=== PATIENT | female | born 1975 | race Caucasian/White ===

== ENCOUNTER 2021-11-03 12:48 | Emergency (ER) | payer MEDICAID, SELFPAY ==
[2021-11-03 12:54] VITALS: BP 128/90; PULSE 105; RESP 16; TEMP 36.8; O2SAT 98; BMI 32.4
[2021-11-03 13:38] LABS: Basophils Percent Auto 0.3 % (0.0-3.0); Hematocrit 43.2 % (33.0-51.0); Hemoglobin* 14.7 gm/dL (12.0-16.0); Immature Granulocytes Abs Auto 0.04 K/uL (0.00-0.30); Lymphocytes Percent Auto 13.3 % (20-44); Mean Corpuscular HGB Conc 34 gm/dL (32-36); Mean Corpuscular Hemoglobin 31 pg (26-34); Mean Corpuscular Volume 90 fL (80-100); Monocytes Percent Auto 5.3 % (0.0-11.0); Neutrophils Percent Auto 79.8 % (42.0-72.0); Platelet Count* 275 K/uL (140-440); RDW Coefficient of Variation % 12.3 % (11.5-15.5); Red Blood Count 4.79 m/uL (4.00-5.20); White Blood Count* 15.75 K/uL (4.50-11.00)
[2021-11-03 13:41] LABS: Slide Review Reflex No
--- NOTE | 2021-11-03 13:41 | ED_ITS ---
HPI - General Adult General Chief complaint: Unspecified Complaint, Adult Stated complaint: Fatigue, nausea, achey, fever Time Seen by Provider: 11/03/21 12:54 Source: patient History of Present Illness HPI narrative: Patient is a 46-year-old woman who presents for evaluation of some fatigue and body aches. She says that 2 days ago, she felt fatigued, to the point that she stayed home from work. She said that she only had the energy to watch TV all day. The next day, she also did go to work because she felt shaky and dizzy. She says that she attributed that to possibly an iron crash, because she has had problems with low iron and takes iron supplementation. Today, she says that she felt well enough to go to work, but then while at work she developed more fatigue and body aches, so she thought she should come get checked out. She has had a little bit of a cough, but says that is pretty typical for her because she is a smoker although she is trying to quit. She says while at work she thought she had a fever as well though she did check her temperature. She does feel like her temperature came down over the course of about 45 minutes. 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 She is not short of breath. She does not have a sore throat or congestion. She took a home COVID test yesterday which was negative. She has had some nausea but no vomiting. Diarrhea. Related Data Home Medications Medication Instructions Recorded Confirmed Aleve 11/03/21 fluticasone propionate 50 intranasal 11/03/21 mcg/actuation nasal spray,suspension norethindrone (contraceptive) 0.35 mg 11/03/21 mg tablet Allergies Allergy/AdvReac Type Severity Reaction Status Date / Time Penicillins Allergy Verified 11/03/21 13:00 shellfish Allergy Uncoded 11/03/21 13:00 Review of Systems Status of ROS: Reports: 10 or more systems reviewed and unremarkable except as noted in History and below [facility] Social History Smoking Status: Current every day smoker How often do you have a drink containing alcohol: 2-4 times a month AUDIT-C Alcohol total score: 2 Non-prescribed substance use: denies use Exam Narrative: Exam Narrative: Vital signs as noted above. In general, an alert, well-appearing patient. Head: Normocephalic, atraumatic. Eyes: Pupils are equal reactive. Extraocular movements are full. Conjunctivae are normal. ENT: Mucous membranes are moist. Throat is normal. Neck: Supple without lymphadenopathy. Heart: Regular rate and rhythm. No murmur or rub. Lungs: Clear bilaterally. No increased work of breathing, crackles or wheezes. Abdomen: Soft and nontender. No organomegaly. Extremities: Well perfused. No edema. No calf tenderness. Pulses intact. Neurologic: Patient is alert and oriented to person and place. Speech is fluent. Face is symmetric. Moves all extremities equally. Affect: Normal. Skin: Warm and dry. Well perfused. Const: Vital Signs, click to edit/add: Vital Signs - 24 hr 11/03/21 12:54 11/03/21 14:39 Temperature 98.3 F Pulse Rate [Left P ulse Oximeter] 105 H 86 Respiratory Rate 16 18 Blood Pressure [Ri ght Upper Arm] 128/90 H 131/97 H Pulse Oximetry 98 99 Oxygen Delivery Me thod Room Air Room Air Course Course Hospital Course: I had a fairly lengthy conversation with her about her symptoms. Overall, these are likely viral it I offered to do a chest x-ray which she declined. She says that she does not feel is necessary and she is worried about insurance coverage. She says the cough is not that bad, and she thinks the rib pain is just muscles. She would like to do some blood work as she is concerned about her anemia. She would also like to repeat a COVID test. Her exam is normal, she was mildly tachycardic on arrival at 1:05 a.m., but in the course of my exam her heart rate is normal. Her oxygen level is normal. Clinically she looks well. Discussed that she may have a nonspecific viral infection, in which case I would just recommend supportive care and she will likely feel better as her illness improves. White blood cells a mildly elevated at 15,000 thousand, significance somewhat unclear at this time. Hemoglobin is normal at 14.7 and platelets are 275,000. Basic metabolic panel is entirely normal and COVID, influenza and RSV are negative. Reviewed all this with her. I think it is reasonable to see how she does over the next couple of days. Discussed if she has symptoms that are more focal, if her cough significantly worsens or she develops focal chest pain or shortness of breath, or she develops new symptoms such as urinary symptoms, bloody stools, unusual rashes, etcetera recommend that she come back so that we can do more evaluation. Otherwise, supportive care, follow up with primary care if not improving over the next few days to week. Work note given. Vital Signs Vital signs: Initial Vital Signs Temperature 98.3 F 11/03/21 12:54 Temperature Source Temporal Artery Scan 11/03/21 12:54 Pulse Rate 105 H 11/03/21 12:54 Respiratory Rate 16 11/03/21 12:54 Blood Pressure 128/90 H 11/03/21 12:54 Blood Pressure Mean 102 11/03/21 12:54 Blood Pressure Position Sitting 11/03/21 12:54 Pulse Oximetry 98 11/03/21 12:54 Oxygen Delivery Method 11/03/21 12:54 Vital Signs Temperature 98.3 F 11/03/21 12:54 Pulse Rate 105 H 11/03/21 12:54 Respiratory Rate 16 11/03/21 12:54 Blood Pressure 128/90 H 11/03/21 12:54 Pulse Oximetry 98 11/03/21 12:54 Oxygen Delivery Method 11/03/21 12:54 Temperature 98.3 F 11/03/21 12:54 Pulse Rate 86 11/03/21 14:39 Respiratory Rate 18 11/03/21 14:39 Blood Pressure 131/97 H 11/03/21 14:39 Pulse Oximetry 99 11/03/21 14:39 Oxygen Delivery Method 11/03/21 14:39 Medical Decision Making Lab Data Labs: Lab Results 11/03/21 11/03/21 11/03/21 Range/Units 13:33 13:33 13:33 WBC 15.75 H (4.50-11.00) K/uL RBC 4.79 (4.00-5.20) m/uL Hgb 14.7 (12.0-16.0) gm/dL Hct 43.2 (33.0-51.0) % MCV 90 (80-100) fL MCH 31 (26-34) pg MCHC 34 (32-36) gm/dL RDW Coeff of Allen 12.3 (11.5-15.5) % Plt Count 275 (140-440) K/uL Neut % (Auto) 79.8 H (42.0-72.0) % Lymph % (Auto) 13.3 L (20-44) % Bradley % (Auto) 5.3 (0.0-11.0) % Eos % (Auto) 1.0 (0.0-7.0) % Baso % (Auto) 0.3 (0.0-3.0) % Neut # (Auto) 12.60 H (1.7-7.0) K/uL Lymph # (Auto) 2.10 (0.90-2.90) K/uL Bradley # (Auto) 0.80 (0.00-0.90) K/UL Eos # (Auto) 0.20 (0.00-0.50) K/uL Baso # (Auto) 0.00 (0.00-0.30) K/uL Abs Immat Gran (auto) 0.04 (0.00-0.30) K/uL Sodium 136 (135-149) mmol/L Potassium 4.2 (3.6-5.1) mmol/L Chloride 105 (96-114) mmol/L Carbon Dioxide 20 (20-32) mmol/L BUN 11 (5-24) mg/dL Creatinine 0.6 (0.5-1.5) mg/dL Estimated Creat Clear 106.55 Estimated GFR 113 ml/min Glucose 99 (60-115) mg/dL Calcium 9.0 (8.4-10.6) mg/dL SARS-CoV-2 (PCR) Negative SARS-CoV-2 (Negative) Influenza Type A (PCR) Negative PCR FLU A (Negative) Influenza Type B (PCR) Negative PCR FLU B (Negative) RSV (PCR) Negative PCR RSV (Negative) Discharge Plan Discharge Clinical Impression: Acute viral syndrome Patient Disposition: Home, Self-Care Condition: Stable Instructions: Viral Syndrome (ED) Additional Instructions: Return for focal symptoms such as shortness of breath, worsening cough, unusual rashes, bloody stools, urinary symptoms. Follow-up with your primary doctor if not improving over the next several days to week. Prescriptions: No Action norethindrone (contraceptive) 0.35 mg tablet fluticasone propionate 50 mcg/actuation spray,suspension INTRANASAL Label Comments: SHAKE LIQUID AND USE 2 SPRAYS IN EACH NOSTRIL EVERY DAY Aleve Follow Up/Referrals: Blanche Villatoro DO [Primary Care Provider] - Stand Alone Forms: [facility] Info Instructions
[2021-11-03 13:49] LABS: Chloride* 105 mmol/L (96-114)
[2021-11-03 13:50] LABS: Potassium* 4.2 mmol/L (3.6-5.1); Sodium* 136 mmol/L (135-149)
[2021-11-03 13:52] LABS: Creatinine* 0.6 mg/dL (0.5-1.5); Est. Creatinine Clearance* 106.55; Estimated Glomerular Filt Rate 113 ml/min
[2021-11-03 13:53] LABS: Blood Urea Nitrogen* 11 mg/dL (5-24); Carbon Dioxide* 20 mmol/L (20-32); Glucose* 99 mg/dL (60-115)
[2021-11-03 14:17] LABS: PCR FLU A Negative PCR FLU A (Negative); PCR FLU B Negative PCR FLU B (Negative); PCR RSV Negative PCR RSV (Negative)
[2021-11-03 14:21] LABS: SARS PCR* Negative SARS-CoV-2 (Negative)
[2021-11-03 14:39] VITALS: BP 131/97; PULSE 86; RESP 18; O2SAT 99
== END 2021-11-03 14:57 | disposition home or self-care (01) ==
PROVIDERS: Emergency Provider Emergency Medicine; PCP Family Medicine
DX: B34.9 Viral infection, unspecified (principal)
CPT/HCPCS: 36415; 80048; 85025; 87502; 87634; 87635; 99283; 99284

== ENCOUNTER 2022-10-26 12:34 | Outpatient (CLI) | payer MEDICAID, SELFPAY | END 2022-10-26 12:35 | disposition home or self-care (01) | LOC: NFLDREF 10-27 08:34 | PROVIDERS: PCP Family Medicine; Referring Provider Family Medicine; Visit Provider Physician Assistant | DX: N39.0 Urinary tract infection, site not specified (principal); D72.829 Elevated white blood cell count, unspecified; J98.9 Respiratory disorder, unspecified; R42 Dizziness and giddiness | CPT/HCPCS: 87086; 87186 ==